=== PATIENT | male | born 1990 | race Caucasian/White ===

== ENCOUNTER 2021-11-12 22:28 | Emergency (ER) | payer BC, OTHER ==
[2021-11-12 22:44] VITALS: PULSE 104
== END 2021-11-13 00:32 | disposition left against medical advice (07) ==
LOC: MW.ED 22:28
DX: S90.32XA Contusion of left foot, initial encounter (principal); E66.9 Obesity, unspecified; Z68.31 Body mass index [BMI] 31.0-31.9, adult; X50.1XXA Overexertion from prolonged static or awkward postures, initial encounter
CPT/HCPCS: 73610-26-RT; 73610-RT; 73630-26-RT; 73630-RT; 99282; 99283